=== PATIENT | male | born 1935 | race Caucasian/White ===

== ENCOUNTER 2020-11-21 05:59 | Day surgery (SDC) | payer MEDICARE, BC ==
[2020-11-20 10:51] LABS: BASOPHILS # (AUTO) 0.1 X10'3 (0-0.2); BASOPHILS % (AUTO) 1.3 % (0-1); EOSINOPHILS # (AUTO) 0.1 X10'3 (0-0.9); EOSINOPHILS % (AUTO) 1.5 % (0-6); HEMATOCRIT 42.1 % (42.0-52.0); HEMOGLOBIN 13.8 g/dl (14.0-17.9); LYMPHOCYTES # (AUTO) 1.1 X10'3 (1.1-4.8); LYMPHOCYTES % (AUTO) 17.4 % (21-51); MEAN CORPUSCULAR HEMOGLOBIN 30.2 PG (27.0-31.0); MEAN CORPUSCULAR HGB CONC 32.7 g/dL (33.0-36.5); MEAN CORPUSCULAR VOLUME 92.4 FL (78-98); MEAN PLATELET VOLUME 9.1 FL (7.4-10.4); MONOCYTES # (AUTO) 0.5 X10'3 (0-0.9); MONOCYTES % (AUTO) 7.6 % (2-12); NEUTROPHILS # (AUTO) 4.6 X10'3 (1.8-7.7); NEUTROPHILS % (AUTO) 72.2 % (42-75); PLATELET COUNT 182 X10'3 (140-440); RED BLOOD COUNT 4.56 X10'6 (4.70-6.10); RED CELL DISTRIBUTION WIDTH 15.3 % (11.5-14.5); WHITE BLOOD COUNT 6.4 X10'3 (4.5-11.0)
[2020-11-20 11:03] LABS: PARTIAL THROMBOPLASTIN TIME 25 SECONDS (22-32)
[2020-11-20 11:06] LABS: ALBUMIN 4.1 G/DL (3.4-5.0); ANION GAP 10 (8-16); BLOOD UREA NITROGEN 12 MG/DL (7-18); CALCIUM 8.9 MG/DL (8.5-10.1); CHLORIDE 105 MMOL/L (99-107); CREATININE 1.34 MG/DL (0.60-1.10); GLUCOSE 98 MG/DL (70-104); POTASSIUM 3.8 MMOL/L (3.5-5.1); SODIUM 142 MMOL/L (135-145); eGFR 51 ML/MIN
[2020-11-21] VITALS (11 sets, daily range): BP systolic 101–161; BP diastolic 50–90
[~2020-11-21] VITALS: Ht 177.8 cm; Wt 75.0 kg
[~2020-11-21 05:59] MED LIST: ALLO100T PO; AMLO-315 PO; ASPI-1264 PO; ASPI81TA52 PO; ATEN-168 PO; ATEN25TA8 PO; ATOR40TA PO; ATOR40TA72 PO; ENAL-79 PO; ENAL10TA78 PO; ENAL20TA75 PO; FURO-150 PO; OMEG1CAP2 PO; OMEP-50 PO; OMEP20CA15 PO; [UNRECOGNIZED DRUG - CODE] IS; tamsulosin capsule PO
[2020-11-21] MEDS ORDERED: normal saline 1000ml 1,000 ML IV SCH (06:15)
[2020-11-21] MEDS ORDERED: cefazolin/dext.iso 2gm/100ml 100 ML IV ONE (06:15)
[2020-11-21] MEDS ORDERED: ATEN-55 PO (06:54)
[2020-11-21] MEDS ORDERED: FLO0.4C PO (06:58)
[2020-11-21] MEDS ORDERED: APIX5TAB3 PO (07:00)
--- NOTE | 2020-11-21 07:09 | NUR ---
Last BM is per patient Addendum: 11/21/20 at 0712 by Joslyn LEONARD Amended: Links added.
--- NOTE | 2020-11-21 07:10 | NUR ---
Patient states sometimes it feels funny when he urinates and he has a history of bladder cancer. Patient states there is no blood in his urine at this time. No pain or frequency. Addendum: 11/21/20 at 0712 by Joslyn LEONARD Amended: Links added.
[2020-11-21] MEDS ORDERED: midazolam 1 mg/ML 2ml injection ONE ×2 (07:22→08:31)
[2020-11-21] MEDS ORDERED: ceFAZolin 1000mg inj ONE (07:22)
[2020-11-21] MEDS ORDERED: LIDOcaine 1% W/epiNEPHrine 1:100,000 20ml vial ONE (07:22)
[2020-11-21] MEDS ORDERED: fentaNYL/PF 50MCG/1 ML 2ML syringe ONE ×2 (07:22→08:32)
[2020-11-21] MEDS ORDERED: HYDROcodone/acetaminophen 5mg/325mg tablet PO PRN (09:55)
[2020-11-21] MEDS ORDERED: HYDROcodone/acetaminophen 10/325mg tab PO PRN (09:55)
[2020-11-21] MEDS ORDERED: vancomycin/NS 1 GM ADD-VANTAGE 250 ML IV ONE (11:00)
[2020-11-21] MEDS ORDERED: ondansetron/PF 4mg/2ml inj ONE (11:08)
[2020-11-21] MEDS ORDERED: ondansetron/PF 4mg/2ml inj IV PRN (11:10)
== END 2020-11-21 15:15 | disposition home or self-care (01) ==
LOC: SSTAY O 05:59 → MERGE 08:00 → SSTAY O 15:15
PROVIDERS: ATTEND Internal Medicine Cardiovascular Disease
DX: I49.5 Sick sinus syndrome (principal); E78.49 Other hyperlipidemia; J44.9 Chronic obstructive pulmonary disease, unspecified; I25.10 Atherosclerotic heart disease of native coronary artery without angina pectoris; I13.0 Hypertensive heart and chronic kidney disease with heart failure and stage 1 through stage 4 chronic kidney disease, or unspecified chronic kidney disease; N18.9 Chronic kidney disease, unspecified; I50.9 Heart failure, unspecified; I35.0 Nonrheumatic aortic (valve) stenosis; I48.19 Other persistent atrial fibrillation; E66.9 Obesity, unspecified; Z68.24 Body mass index [BMI] 24.0-24.9, adult; Z95.5 Presence of coronary angioplasty implant and graft; Z79.82 Long term (current) use of aspirin; Z79.899 Other long term (current) drug therapy; Z98.890 Other specified postprocedural states; Z87.891 Personal history of nicotine dependence
CPT/HCPCS: 33208; 36415; 71046; 80048; 85025; 85610; 85730; 93005; 99152; 99153; C1785; C1894; C1898; J0690; J2250; J2405; J3010; J3370; J7030; A4565; A4620; A6449

== ENCOUNTER 2021-07-12 09:38 | Emergency (ER) | payer MEDICARE, BC ==
[~2021-07-12] VITALS: Ht 177.8 cm; Wt 83.2 kg
[~2021-07-12 09:38] MED LIST changes: +APIX5TAB3 PO; -ASPI-1264 PO; -ATEN-168 PO; +ATEN-55 PO; -ATEN25TA8 PO; -ATOR40TA PO; -ENAL10TA78 PO; -ENAL20TA75 PO; +FLO0.4C PO; -FURO-150 PO; -OMEP20CA15 PO; -[UNRECOGNIZED DRUG - CODE] IS; -tamsulosin capsule PO
[2021-07-12 11:02] VITALS: BP 108/69
[2021-07-12 11:16] LABS: BASOPHILS # (AUTO) 0.1 X10'3 (0-0.2); BASOPHILS % (AUTO) 0.9 % (0-1); EOSINOPHILS # (AUTO) 0.1 X10'3 (0-0.9); EOSINOPHILS % (AUTO) 0.9 % (0-6); HEMATOCRIT 36.8 % (42.0-52.0); HEMOGLOBIN 12.5 g/dl (14.0-17.9); LYMPHOCYTES # (AUTO) 0.7 X10'3 (1.1-4.8); LYMPHOCYTES % (AUTO) 10.8 % (21-51); MEAN CORPUSCULAR HEMOGLOBIN 31.6 PG (27.0-31.0); MEAN CORPUSCULAR HGB CONC 33.9 g/dL (33.0-36.5); MEAN CORPUSCULAR VOLUME 93.1 FL (78-98); MEAN PLATELET VOLUME 9.9 FL (7.4-10.4); MONOCYTES # (AUTO) 0.6 X10'3 (0-0.9); MONOCYTES % (AUTO) 9.6 % (2-12); NEUTROPHILS # (AUTO) 4.9 X10'3 (1.8-7.7); NEUTROPHILS % (AUTO) 77.8 % (42-75); PLATELET COUNT 155 X10'3 (140-440); RED BLOOD COUNT 3.95 X10'6 (4.70-6.10); RED CELL DISTRIBUTION WIDTH 14.4 % (11.5-14.5); WHITE BLOOD COUNT 6.3 X10'3 (4.5-11.0)
[2021-07-12 11:32] LABS: ALANINE AMINOTRANSFERASE 24 U/L (12-78); ALBUMIN 3.9 G/DL (3.4-5.0); ALBUMIN/GLOBULIN RATIO 1.2 (1.1-1.5); ALKALINE PHOSPHATASE 161 IU/L (46-116); ANION GAP 10 (8-16); ASPARTATE AMINO TRANSFERASE 15 U/L (10-37); BILIRUBIN,TOTAL 0.8 MG/DL (0.1-1.0); BLOOD UREA NITROGEN 26 MG/DL (7-18); BUN/CREATININE RATIO 14.4 (5.4-32.0); CALCIUM 8.8 MG/DL (8.5-10.1); CHLORIDE 105 MMOL/L (99-107); CREATININE 1.81 MG/DL (0.60-1.10); GLUCOSE 97 MG/DL (70-104); POTASSIUM 4.4 MMOL/L (3.5-5.1); SODIUM 138 MMOL/L (135-145); TOTAL CARBON DIOXIDE 22.8 MMOL/L (24-32); TOTAL PROTEIN 7.1 G/DL (6.4-8.2); eGFR 36 ML/MIN
[2021-07-12] MEDS ORDERED: ROBCFL PO (12:36)
[2021-07-12] MEDS ORDERED: BENZ-38 PO (12:36)
== END 2021-07-12 12:45 | disposition home or self-care (01) ==
LOC: ER 09:38
DX: B34.9 Viral infection, unspecified (principal); Z20.822 Contact with and (suspected) exposure to COVID-19; J44.9 Chronic obstructive pulmonary disease, unspecified; I10 Essential (primary) hypertension; Z88.5 Allergy status to narcotic agent; Z79.899 Other long term (current) drug therapy
CPT/HCPCS: 36415; 71045; 80053; 85025; 87635; 99284; C9803

== ENCOUNTER 2021-09-22 11:19 | Emergency (ER) | payer MEDICARE, BC ==
[~2021-09-22] VITALS: Ht 177.8 cm; Wt 80.8 kg
[~2021-09-22 11:19] MED LIST changes: -OMEP-50 PO; +OMEP20CA16 PO
[2021-09-22 12:15] VITALS: BP 144/77
== END 2021-09-22 13:26 | disposition home or self-care (01) ==
LOC: ER 11:20
DX: S50.12XA Contusion of left forearm, initial encounter (principal); I10 Essential (primary) hypertension; J44.9 Chronic obstructive pulmonary disease, unspecified; G47.30 Sleep apnea, unspecified; Z88.8 Allergy status to other drugs, medicaments and biological substances; Z79.82 Long term (current) use of aspirin; Z79.899 Other long term (current) drug therapy; Z95.0 Presence of cardiac pacemaker; X50.3XXA Overexertion from repetitive movements, initial encounter; Y93.89 Activity, other specified; Y92.89 Other specified places as the place of occurrence of the external cause; Y99.8 Other external cause status
CPT/HCPCS: 93971; 99284

== ENCOUNTER 2021-10-13 09:48 | Emergency (ER) | payer MEDICARE, BC ==
[~2021-10-13] VITALS: Ht 177.8 cm; Wt 80.9 kg
[2021-10-13] MEDS ORDERED: SOTROVIMAB 500mg injection 500 MG in normal saline 100ml IV soln 100 ML IV ONE (11:05)
[2021-10-13 12:05] VITALS: BP 165/82
== END 2021-10-13 13:07 | disposition home or self-care (01) ==
LOC: ER 09:48
DX: U07.1 COVID-19 (principal); I10 Essential (primary) hypertension; J44.9 Chronic obstructive pulmonary disease, unspecified; G47.30 Sleep apnea, unspecified; Z87.01 Personal history of pneumonia (recurrent); Z88.8 Allergy status to other drugs, medicaments and biological substances; Z79.82 Long term (current) use of aspirin; Z79.899 Other long term (current) drug therapy; Z86.16 Personal history of COVID-19
CPT/HCPCS: 71045; 87635; 99284; C9803; J3490; M0247; Q0247

== ENCOUNTER 2021-10-15 10:38 | Emergency (ER) | payer MEDICARE, BC ==
[~2021-10-15] VITALS: Ht 177.8 cm; Wt 81.0 kg
[2021-10-15 10:40] VITALS: BP 160/87
[2021-10-15] MEDS ORDERED: ALBU18HF2 INH (12:21)
[2021-10-15] MEDS ORDERED: DEXA6TAB PO (12:21)
== END 2021-10-15 13:09 | disposition home or self-care (01) ==
LOC: ER 10:39
DX: U07.1 COVID-19 (principal); J44.1 Chronic obstructive pulmonary disease with (acute) exacerbation; I10 Essential (primary) hypertension; Z87.01 Personal history of pneumonia (recurrent); Z98.890 Other specified postprocedural states; Z88.5 Allergy status to narcotic agent; Z79.82 Long term (current) use of aspirin; Z79.899 Other long term (current) drug therapy
CPT/HCPCS: 71045; 99284

== ENCOUNTER 2022-12-11 12:03 | Emergency (ER) | payer MEDICARE, BC ==
[~2022-12-11] VITALS: Ht 177.8 cm; Wt 84.1 kg
[~2022-12-11 12:03] MED LIST changes: +ALBU18HF2 INH; +DEXA6TAB PO
[2022-12-11 12:20] LABS: BASOPHILS # (AUTO) 0.1 X10'3 (0-0.2); BASOPHILS % (AUTO) 1.2 % (0-1); EOSINOPHILS # (AUTO) 0.1 X10'3 (0-0.9); HEMATOCRIT 37.7 % (42.0-52.0); HEMOGLOBIN 12.7 g/dl (14.0-17.9); LYMPHOCYTES # (AUTO) 0.9 X10'3 (1.1-4.8); LYMPHOCYTES % (AUTO) 11.4 % (21-51); MEAN CORPUSCULAR HEMOGLOBIN 31.7 PG (27.0-31.0); MEAN CORPUSCULAR HGB CONC 33.7 g/dL (33.0-36.5); MEAN CORPUSCULAR VOLUME 94.3 FL (78-98); MEAN PLATELET VOLUME 9.6 FL (7.4-10.4); MONOCYTES # (AUTO) 0.5 X10'3 (0-0.9); NEUTROPHILS # (AUTO) 6.2 X10'3 (1.8-7.7); NEUTROPHILS % (AUTO) 79.4 % (42-75); PLATELET COUNT 169 X10'3 (140-440); RED BLOOD COUNT 3.99 X10'6 (4.70-6.10); RED CELL DISTRIBUTION WIDTH 15.5 % (11.5-14.5); WHITE BLOOD COUNT 7.8 X10'3 (4.5-11.0)
[2022-12-11 12:41] LABS: ALANINE AMINOTRANSFERASE 18 U/L (12-78); ALBUMIN 4.2 G/DL (3.4-5.0); ALBUMIN/GLOBULIN RATIO 1.4 (1.1-1.5); ALKALINE PHOSPHATASE 181 IU/L (46-116); ANION GAP 9 (8-16); ASPARTATE AMINO TRANSFERASE 13 U/L (10-37); BILIRUBIN,TOTAL 1.2 MG/DL (0.1-1.0); BLOOD UREA NITROGEN 15 MG/DL (7-18); BUN/CREATININE RATIO 10.7 (10.0-20.0); CALCIUM 8.9 MG/DL (8.5-10.1); CHLORIDE 106 MMOL/L (99-107); GLUCOSE 103 MG/DL (70-104); POTASSIUM 4.2 MMOL/L (3.5-5.1); SODIUM 141 MMOL/L (135-145); TOTAL CARBON DIOXIDE 26.4 MMOL/L (24-32); TOTAL PROTEIN 7.3 G/DL (6.4-8.2); eGFR 48 ML/MIN
--- NOTE | 2022-12-11 13:49 | NUR ---
PACE MAKER INTERROGATED. PT IN AFIB 95% PACED IN VENTRICALS
[2022-12-11] MEDS ORDERED: furosemide 10 MG/1 ML 10ml inj IV ONE (14:20)
[2022-12-11] MEDS ORDERED: furosemide 20MG tablet PO ONE (14:30)
[2022-12-11] MEDS ORDERED: POTA-205 PO (14:41)
[2022-12-11] MEDS ORDERED: FURO-150 PO (14:41)
[2022-12-11 14:54] VITALS: BP 146/114
[2022-12-11] MEDS ORDERED: ATEN-169 PO (15:08)
== END 2022-12-11 16:02 | disposition home or self-care (01) ==
LOC: ER 12:04
DX: I11.0 Hypertensive heart disease with heart failure (principal); I71.20 Thoracic aortic aneurysm, without rupture, unspecified; I50.9 Heart failure, unspecified; J44.9 Chronic obstructive pulmonary disease, unspecified; Z88.5 Allergy status to narcotic agent
CPT/HCPCS: 36415; 71045; 71250; 80053; 83880; 84484; 85025; 93005; 99285

== ENCOUNTER 2023-01-22 15:24 | Outpatient (CLI) | payer MEDICARE, BC ==
[~2023-01-22 15:24] MED LIST changes: -ATEN-55 PO; +FURO-150 PO; +POTA-205 PO
[2023-01-22 16:42] LABS: BASOPHILS # (AUTO) 0.1 X10'3 (0-0.2); BASOPHILS % (AUTO) 1.3 % (0-1); EOSINOPHILS # (AUTO) 0.1 X10'3 (0-0.9); HEMOGLOBIN 12.8 g/dl (14.0-17.9); LYMPHOCYTES # (AUTO) 1.4 X10'3 (1.1-4.8); LYMPHOCYTES % (AUTO) 20.5 % (21-51); MEAN CORPUSCULAR HEMOGLOBIN 30.8 PG (27.0-31.0); MEAN CORPUSCULAR HGB CONC 32.8 g/dL (33.0-36.5); MEAN CORPUSCULAR VOLUME 93.9 FL (78-98); MEAN PLATELET VOLUME 9.7 FL (7.4-10.4); MONOCYTES # (AUTO) 0.6 X10'3 (0-0.9); MONOCYTES % (AUTO) 9.2 % (2-12); NEUTROPHILS # (AUTO) 4.7 X10'3 (1.8-7.7); PLATELET COUNT 164 X10'3 (140-440); RED BLOOD COUNT 4.16 X10'6 (4.70-6.10); RED CELL DISTRIBUTION WIDTH 15.4 % (11.5-14.5)
== END 2023-01-22 23:59 | disposition home or self-care (01) ==
LOC: LAB 15:24
PROVIDERS: ATTEND Surgery Vascular Surgery
DX: I71.61 Supraceliac aneurysm of the thoracoabdominal aorta, without rupture (principal); Z79.899 Other long term (current) drug therapy
CPT/HCPCS: 36415; 84443; 85025

== ENCOUNTER 2023-02-01 10:42 | Outpatient (CLI) | payer MEDICARE, BC ==
[2023-02-01 11:45] LABS: BASOPHILS # (AUTO) 0.1 X10'3 (0-0.2); BASOPHILS % (AUTO) 1.4 % (0-1); EOSINOPHILS # (AUTO) 0.1 X10'3 (0-0.9); EOSINOPHILS % (AUTO) 1.6 % (0-6); HEMATOCRIT 39.1 % (42.0-52.0); HEMOGLOBIN 12.8 g/dl (14.0-17.9); LYMPHOCYTES # (AUTO) 1.2 X10'3 (1.1-4.8); LYMPHOCYTES % (AUTO) 19.1 % (21-51); MEAN CORPUSCULAR HEMOGLOBIN 30.7 PG (27.0-31.0); MEAN CORPUSCULAR HGB CONC 32.8 g/dL (33.0-36.5); MEAN CORPUSCULAR VOLUME 93.5 FL (78-98); MEAN PLATELET VOLUME 9.8 FL (7.4-10.4); MONOCYTES # (AUTO) 0.5 X10'3 (0-0.9); MONOCYTES % (AUTO) 8.4 % (2-12); NEUTROPHILS # (AUTO) 4.5 X10'3 (1.8-7.7); NEUTROPHILS % (AUTO) 69.5 % (42-75); PLATELET COUNT 176 X10'3 (140-440); RED BLOOD COUNT 4.18 X10'6 (4.70-6.10); RED CELL DISTRIBUTION WIDTH 15.3 % (11.5-14.5); WHITE BLOOD COUNT 6.4 X10'3 (4.5-11.0)
[2023-02-01 11:50] LABS: ALBUMIN 4.2 G/DL (3.4-5.0); ANION GAP 13 (8-16); BLOOD UREA NITROGEN 25 MG/DL (7-18); BUN/CREATININE RATIO 13.3 (10.0-20.0); CALCIUM 8.4 MG/DL (8.5-10.1); CHLORIDE 105 MMOL/L (99-107); CREATININE 1.88 MG/DL (0.60-1.10); GLUCOSE 80 MG/DL (70-104); SODIUM 145 MMOL/L (135-145); TOTAL CARBON DIOXIDE 27.4 MMOL/L (24-32); eGFR 34 ML/MIN
== END 2023-02-01 23:59 | disposition home or self-care (01) ==
LOC: LAB 10:42
PROVIDERS: ATTEND Surgery Vascular Surgery
DX: I71.61 Supraceliac aneurysm of the thoracoabdominal aorta, without rupture (principal)
CPT/HCPCS: 36415; 80048; 85025

== ENCOUNTER 2023-02-05 07:51 | Day surgery (SDC) | payer MEDICARE, BC ==
[~2023-02-05] VITALS: Ht 177.8 cm; Wt 77.4 kg
[2023-02-05] MEDS ORDERED: sodium bicarbonate 1meq/ml inj 150 ML in dextrose 5%-water 1,000 ML IV SCH (08:30)
[2023-02-05 10:00] VITALS: BP 114/58
[2023-02-05] MEDS ORDERED: iohexol 350MG/ML 100ml bottle IV ONE (10:49)
[2023-02-05] MEDS ORDERED: POTA-205 PO (11:01)
[2023-02-05] MEDS ORDERED: FURO20TA4 PO (11:01)
[2023-02-05] MEDS ORDERED: ATEN25TA PO (11:01)
[2023-02-05 12:51] VITALS: BP 108/49
== END 2023-02-05 14:50 | disposition home or self-care (01) ==
LOC: SSTAY O 07:51
PROVIDERS: ATTEND Surgery Vascular Surgery
DX: I71.61 Supraceliac aneurysm of the thoracoabdominal aorta, without rupture (principal); I71.20 Thoracic aortic aneurysm, without rupture, unspecified; I71.40 Abdominal aortic aneurysm, without rupture, unspecified; N62 Hypertrophy of breast; K44.9 Diaphragmatic hernia without obstruction or gangrene; K29.70 Gastritis, unspecified, without bleeding; K31.89 Other diseases of stomach and duodenum; K57.30 Diverticulosis of large intestine without perforation or abscess without bleeding; K56.699 Other intestinal obstruction unspecified as to partial versus complete obstruction; K40.20 Bilateral inguinal hernia, without obstruction or gangrene, not specified as recurrent; N28.1 Cyst of kidney, acquired
CPT/HCPCS: 71275; 74174; J3490; J7070; Q9967

== ENCOUNTER 2024-06-19 08:57 | Emergency (ER) | payer MEDICARE, BC ==
[~2024-06-19] VITALS: Ht 177.8 cm; Wt 79.1 kg
[~2024-06-19 08:57] MED LIST changes: -ALBU18HF2 INH; +ATEN25TA PO; -DEXA6TAB PO; -FURO-150 PO; +FURO20TA4 PO; -OMEG1CAP2 PO; +POLY119P2 PO
[2024-06-19 09:14] LABS: BASOPHILS # (AUTO) 0.1 X10'3 (0-0.2); BASOPHILS % (AUTO) 0.9 % (0-1); EOSINOPHILS # (AUTO) 0.1 X10'3 (0-0.9); EOSINOPHILS % (AUTO) 0.6 % (0-6); HEMATOCRIT 38.6 % (42.0-52.0); HEMOGLOBIN 12.8 g/dl (14.0-17.9); LYMPHOCYTES # (AUTO) 0.7 X10'3 (1.1-4.8); LYMPHOCYTES % (AUTO) 8.8 % (21-51); MEAN CORPUSCULAR HEMOGLOBIN 32.2 PG (27.0-31.0); MEAN CORPUSCULAR HGB CONC 33.1 g/dL (33.0-36.5); MEAN CORPUSCULAR VOLUME 97.4 FL (78-98); MEAN PLATELET VOLUME 8.5 FL (7.4-10.4); MONOCYTES # (AUTO) 0.5 X10'3 (0-0.9); MONOCYTES % (AUTO) 5.5 % (2-12); NEUTROPHILS # (AUTO) 7.1 X10'3 (1.8-7.7); NEUTROPHILS % (AUTO) 84.2 % (42-75); PLATELET COUNT 178 X10'3 (140-440); RED BLOOD COUNT 3.97 X10'6 (4.70-6.10); RED CELL DISTRIBUTION WIDTH 15.5 % (11.5-14.5); WHITE BLOOD COUNT 8.4 X10'3 (4.5-11.0)
[2024-06-19 09:36] LABS: ALANINE AMINOTRANSFERASE 17 U/L (12-78); ALBUMIN/GLOBULIN RATIO 1.3 (1.1-1.5); ALKALINE PHOSPHATASE 139 IU/L (46-116); ANION GAP 8 (8-16); ASPARTATE AMINO TRANSFERASE 16 U/L (10-37); BILIRUBIN,TOTAL 0.8 MG/DL (0.1-1.0); CHLORIDE 106 MMOL/L (99-107); CREATININE 1.62 MG/DL (0.60-1.10); GLUCOSE 108 MG/DL (70-104); POTASSIUM 4.6 MMOL/L (3.5-5.1); SODIUM 141 MMOL/L (135-145); TOTAL CARBON DIOXIDE 27.2 MMOL/L (24-32); TOTAL PROTEIN 7.2 G/DL (6.4-8.2); eCRCL 33 ML/MIN; eGFR 40 ML/MIN
[2024-06-19 09:44] LABS: PRO BRAIN NATRIURETIC PEPTIDE 2952 PG/ML (0-450)
[2024-06-19 09:46] LABS: BLOOD UREA NITROGEN 22 MG/DL (7-18); BUN/CREATININE RATIO 13.6 (10.0-20.0)
[2024-06-19 10:13] VITALS: TEMP 98; O2SAT 96
[2024-06-19 10:32] VITALS: BP 118/53; PULSE 69
[2024-06-19 10:37] VITALS: RESP 16
== END 2024-06-19 11:20 | disposition home or self-care (01) ==
LOC: ER 08:57
DX: I95.1 Orthostatic hypotension (principal); I48.91 Unspecified atrial fibrillation; I10 Essential (primary) hypertension; J44.9 Chronic obstructive pulmonary disease, unspecified; G47.30 Sleep apnea, unspecified; Z95.0 Presence of cardiac pacemaker; Z88.5 Allergy status to narcotic agent; Z79.82 Long term (current) use of aspirin; Z79.899 Other long term (current) drug therapy
CPT/HCPCS: 36415; 71045; 80053; 83880; 84484; 85025; 93005; 99285

== ENCOUNTER 2025-01-02 08:01 | Emergency (ER) | payer MEDICARE, BC ==
[~2025-01-02] VITALS: Ht 177.8 cm; Wt 74.1 kg
[~2025-01-02 08:01] MED LIST changes: +CLOP75TA34 PO; +COMP1EAC86 INH; -FLO0.4C PO; +IPRA3AMP9 IH; +MECL-231 PO; +MIDO2.5T PO; +PANT40SU2 PO
[2025-01-02 08:05] VITALS: TEMP 97.8
--- NOTE | 2025-01-02 08:16 | ELECTROCARDIOGRAPH REPORT ---
[facility] Test Date: 2025-01-02 Test Time: 08:14:00 Pat Name: VANESA COTTRELL Department: [facility]- Patient ID: [facility]-[id number] Room: Gender: M Bus Girl: : 1935 Requested By: TRISTA GABRIEL Order Number: [id number] Reading MD: Measurements Intervals [place] Rate: 64 P: 202 MI: 188 QRS: -75 QRSD: 163 T: 96 QT: 460 QTc: 475 Interpretive Statements Ventricular-paced rhythm No further analysis attempted due to paced rhythm Baseline wander in lead(s) I,III,aVR,aVL,aVF Please click the below link to view image of tracing.
[2025-01-02 08:42] LABS: BASOPHILS # (AUTO) 0.1 X10'3 (0-0.2); EOSINOPHILS # (AUTO) 0.1 X10'3 (0-0.9); EOSINOPHILS % (AUTO) 0.9 % (0-6); HEMATOCRIT 36.9 % (42.0-52.0); HEMOGLOBIN 12.4 g/dl (14.0-17.9); LYMPHOCYTES # (AUTO) 0.7 X10'3 (1.1-4.8); LYMPHOCYTES % (AUTO) 9.6 % (21-51); MEAN CORPUSCULAR HEMOGLOBIN 30.8 PG (27.0-31.0); MEAN CORPUSCULAR HGB CONC 33.6 g/dL (33.0-36.5); MEAN CORPUSCULAR VOLUME 91.6 FL (78-98); MONOCYTES # (AUTO) 0.8 X10'3 (0-0.9); MONOCYTES % (AUTO) 10.8 % (2-12); NEUTROPHILS % (AUTO) 77.7 % (42-75); PLATELET COUNT 159 X10'3 (140-440); RED BLOOD COUNT 4.03 X10'6 (4.70-6.10); RED CELL DISTRIBUTION WIDTH 15.2 % (11.5-14.5); WHITE BLOOD COUNT 7.8 X10'3 (4.5-11.0)
--- NOTE | 2025-01-02 08:46 | RADIOLOGY REPORT ---
CHEST RADIOGRAPH Indication: CP Technique: Single frontal view of the chest was obtained COMPARISON: DI CHEST,SINGLE VIEW on DOS: 06/24/24, DI CHEST,SINGLE VIEW on DOS: 06/21/24, DI CHEST,SI NGLE VIEW on DOS: 06/19/24, CHEST,SINGLE VIEW on DOS: 07/12/21 FINDINGS: Lines and Tubes: Left chest wall pacemaker. Lungs: Clear Pleura: No effusion. No pneumothorax. Cardiomediastinal contours: Thoracic aorta stent in-situ. Bones: Unremarkable IMPRESSION: No acute disease.
[2025-01-02 08:53] LABS: ALANINE AMINOTRANSFERASE 18 U/L (12-78); ALBUMIN 3.8 G/DL (3.4-5.0); ALBUMIN/GLOBULIN RATIO 1.2 (1.1-1.5); ALKALINE PHOSPHATASE 133 IU/L (46-116); ANION GAP 11 (8-16); ASPARTATE AMINO TRANSFERASE 15 U/L (10-37); BILIRUBIN,TOTAL 1.1 MG/DL (0.1-1.0); BLOOD UREA NITROGEN 20 MG/DL (7-18); BUN/CREATININE RATIO 13.5 (10.0-20.0); CHLORIDE 104 MMOL/L (99-107); CREATININE 1.48 MG/DL (0.60-1.10); GLUCOSE 144 MG/DL (70-104); SODIUM 137 MMOL/L (135-145); TOTAL CARBON DIOXIDE 21.9 MMOL/L (24-32); TOTAL PROTEIN 6.9 G/DL (6.4-8.2); eCRCL 35 ML/MIN; eGFR 45 ML/MIN
[2025-01-02 09:00] LABS: PRO BRAIN NATRIURETIC PEPTIDE 8128 PG/ML (0-450)
--- NOTE | 2025-01-02 09:10 | Physician Documentation ---
History of Present Illness ~ Chief Complaint: Cold, cough & congestion Stated Complaint: NAUSEA/COUGH/NOT EATING Time Seen by MD: 08:43 Primary Medical Doctor: VIKRAM ISAACS 89-year-old male presenting with cough and sinus congestion for the past three days. States that his nose feels very congested and plugged up and has been draining clear to sometimes yellow mucus. He also states that he has developed a cough during this one time and has been coughing up some clear phlegm. He otherwise denies any fever, chills, shortness of breath, chest pain or any other associated symptoms. His states that she also has had a slight runny nose during this time. Medication Reconciliation Allergies: Coded Allergies: codeine (Verified Adverse Reaction, Unknown, n/v, 07/12/21) Scheduled Allopurinol* (Zyloprim*), 1 TABLET PO DAILY, (Reported) Amlodipine Besylate (Amlodipine Besylate), 1 TAB PO DAILY, (Reported) Apixaban (Eliquis), 1 TAB PO Q12H, (Reported) Aspirin (Aspirin EC), 1 TAB PO DAILY, (Reported) Atenolol (Atenolol), 1 TAB PO BID, (Reported) Atorvastatin Calcium (Atorvastatin Calcium), 1 TAB PO DAILY, (Reported) Clopidogrel Bisulfate (Clopidogrel), 75 MG PO DAILY Enalapril Maleate (Enalapril Maleate), 1 TAB PO DAILY, (Reported) Furosemide (Furosemide), 1 TAB PO DAILY, (Reported) Ipratropium/Albuterol Sulfate (IPRAT-ALBUT 0.5-3(2.5) MG/3 ML nebule), 3 ML IH QIDWA Meclizine Hcl (Meclizine Hcl), 12.5 MG PO Q8H Midodrine Hcl* (Proamatine*), 1 TAB PO Q8H Omeprazole (Omeprazole), 1 CAP PO DAILY, (Reported) Pantoprazole Sodium (Protonix), 40 MG PO DAILY Polyethylene Glycol 3350 (Miralax), 17 GM PO DAILY Potassium Chloride (Potassium Chloride), 1 TAB PO DAILY, (Reported) Durable Medical Equipment Compressor, For Nebulizer (Devilbiss Pulmomate), INH INH QIDWA, (DME) Past Medical History Past Medical History: Atrial Fibrillation, Hypertension, Syncope, COPD, Pneumonia, Sleep Apnea Past Surgical History: heart valve surgery Other Past Surgical History: AAA surgery Patient History: FH: pancreatic cancer Alcohol Use: None Drug Use: none Lives with: Spouse Lives In: Home Occupation: retired Review of Systems All Other Systems at this time: Reviewed and Negative Physical Exam Vital Signs: Temperature: 97.8, Heart Rate: 62, Respiratory Rate: 27, BP: 156/71, Pulse Oximetry: 96, Weight: 74.090 Oxygen Flow Rate: 0 Physical Exam I have reviewed the triage vitals. CONST: Well developed and well nourished. In no acute distress HENT: Head Atraumatic EYES: Pupils are equal, round and reactive to light. Normal conjunctiva NECK: Normal range of motion. Supple. CARDIO: Normal rate and regular rhythm. No murmurs, rubs, or gallops. S1, S2. PULM/CHEST: No respiratory distress. Lungs clear to auscultation. No wheeze ABD: Soft and nontender. Nondistended. Bowel sounds normal. No guarding. : Exam deferred MSK: No edema. No deformity. NEURO: Alert and oriented to person, place and time. Moving all extremities SKIN: Warm and dry. PSYCH: Normal mood and affect. Good eye contact. Progress Results/Orders Results/Orders Orders - TRISTA GABRIEL MD Chest,Single View (01/02/25 08:11) Monitor (01/02/25 08:11) Saline Lock (01/02/25 08:11) Oxygen (01/02/25 08:11) Completed Orders - TRISTA GABRIEL MD Chest,Single View (01/02/25 08:11) Cbc/Diff (01/02/25 08:11) PBNP (01/02/25 08:11) Electrocardiogram (01/02/25 08:11) CMP (01/02/25 08:11) Hs Troponin I W Calculations (01/02/25 08:11) Vital Signs 01/02/25 01/02/25 01/02/25 01/02/25 08:05 08:44 08:44 09:26 Temp 97.8 Pulse 65 62 67 Resp 19 17 27 22 B/P (MAP) 154/71 156/71 (99) 119/56 (77) Pulse Ox 97 96 96 O2 Flow Rate 0 01/02/25 09:27 Pulse 67 Resp 22 B/P (MAP) 119/56 Pulse Ox 96 Laboratory Tests Test 01/02/25 08:25 White Blood Count 7.8 Red Blood Count 4.03 L Hemoglobin 12.4 L Hematocrit 36.9 L Mean Corpuscular Volume 91.6 Mean Corpuscular Hemoglobin 30.8 Mean Corpuscular Hemoglobin Concent 33.6 Red Cell Distribution Width 15.2 H Platelet Count 159 Mean Platelet Volume 9.0 Neutrophils (%) (Auto) 77.7 H Lymphocytes (%) (Auto) 9.6 L Monocytes (%) (Auto) 10.8 Eosinophils (%) (Auto) 0.9 Basophils (%) (Auto) 1.0 Neutrophils # (Auto) 6.0 Lymphocytes # (Auto) 0.7 L Monocytes # (Auto) 0.8 Eosinophils # (Auto) 0.1 Basophils # (Auto) 0.1 CBC Comment Sodium Level 137 Potassium Level 4.0 Chloride Level 104 Carbon Dioxide Level 21.9 L Anion Gap 11 Blood Urea Nitrogen 20 H Creatinine 1.48 H Estimated GFR/1.73 m2 45 BUN/Creatinine Ratio 13.5 Glucose Level 144 H Calcium Level 9.0 Total Bilirubin 1.1 H Aspartate Amino Transf (AST/SGOT) 15 Alanine Aminotransferase (ALT/SGPT) 18 Alkaline Phosphatase 133 H Troponin I High Sensitivity 30 Pro-B-Type Natriuretic Peptide 8128 H Total Protein 6.9 Albumin 3.8 Globulin 3.1 Albumin/Globulin Ratio 1.2 Chemistry Comments EKG/XRAY/CT/US/VASC/MRI EKG : Additional Comment EKG as interpreted by ED MD indicates a Ventricular paced rhythm. No ischemia, normal axis, rate of 64 beats per minute Chest X-Ray : Additional Comments CHEST RADIOGRAPH Indication: CP Technique: Single frontal view of the chest was obtained COMPARISON: DI CHEST,SINGLE VIEW on DOS: 06/24/24, DI CHEST,SINGLE VIEW on DOS: 06/21/24, DI CHEST,SINGLE VIEW on DOS: 06/19/24, CHEST,SINGLE VIEW on DOS: 07/12/21 FINDINGS: Lines and Tubes: Left chest wall pacemaker. Lungs: Clear Pleura: No effusion. No pneumothorax. Cardiomediastinal contours: Thoracic aorta stent in-situ. Bones: Unremarkable IMPRESSION: No acute disease. Medical Decision Making Differential Diagnosis 89-year-old male presenting with sinus congestion and cough likely secondary to acute sinusitis. Appears that the sinusitis is also causing some postnasal drip and thus resulting in a cough. The patient's chest x-ray is unremarkable. He does have a pacemaker/defibrillator as well as some mild cardiomegaly but there are no signs of any acute disease such as pneumonia. His lab workup is also grossly unremarkable. He has known chronic kidney disease in his BUN creatinine however is at baseline. There is no elevation in his WBC count. The patient's vital signs are normal and he is satting at 98% on room air. On Physical exam he also has no wheezing or any other abnormalities and is not in any type of respiratory distress. Given the findings I believe that we can treat this as an outpatient. I will prescribe him Augmentin for his sinusitis given that he is high risk and could potentially develop pneumonia. He will be prescribed Augmentin 875 mg twice a day for seven days. Additionally I advised this patient to treat his symptoms symptomatically with [id number] medications such as Mucinex. Advised to monitor his symptoms for improvement and resolution. Follow up with PCP in the next 2-5 days and return to the ED with any acutely worsening symptoms. Departure Disposition: 01 HOME / SELF CARE / HOMELESS Impression: Primary Impression: Sinusitis Additional Impression: Cough Condition: Stable Discharge Instructions: Sinus Infection, Adult Additional Instructions: Take her medications as prescribed. Take Mucinex [id number] as needed as well. Monitor for improvement and resolution. Follow up with your primary care physician in the next 2-5 days. Return to the ED with any acutely worsening symptoms. Referrals: NO PRIMARY CARE PROVIDER (PCP) Signature Scribe Signature: 1 Attestation: 1 TRISTA GABRIEL MD January 02, 2025 09:09
[2025-01-02 09:27] VITALS: BP 119/56; PULSE 67; RESP 22; O2SAT 96
== END 2025-01-02 09:28 | disposition home or self-care (01) ==
LOC: ER 08:01
DX: J32.9 Chronic sinusitis, unspecified (principal); J44.9 Chronic obstructive pulmonary disease, unspecified; G47.30 Sleep apnea, unspecified; I10 Essential (primary) hypertension; I48.91 Unspecified atrial fibrillation; Z88.5 Allergy status to narcotic agent; Z79.82 Long term (current) use of aspirin
CPT/HCPCS: 36415; 71045; 80053; 83880; 84484; 85025; 93005; 99285

== ENCOUNTER 2025-01-26 18:35 | Emergency (ER) | payer MEDICARE, BC ==
[~2025-01-26] VITALS: Ht 177.8 cm; Wt 79.1 kg
[2025-01-26 18:46] VITALS: TEMP 98.1
--- NOTE | 2025-01-26 19:03 | Physician Documentation ---
History of Present Illness ~ Chief Complaint: Dizziness Stated Complaint: DIZZY Time Seen by MD: 19:05 Primary Medical Doctor: VIKRAM ISAACS Patient is seen today with complaints of dizziness for the last few days. Patient states he has experienced similar symptoms previously and was treated using some movements of his eyes and head that helped him resolve symptoms. Patient denies taking any medication this time for his sensation of vertigo/dizziness. Patient states he feels like the room is spinning. He denies any syncopal episodes and denies any chest pain or shortness of breath or abdominal pain or diarrhea. Patient does admit to some nausea during these episodes. He states when he sits down the symptoms resolve but when he is up and about and moving his head around he feels like the room starts spinning. He has no other concern or complaint at this time. Medication Reconciliation Allergies: Coded Allergies: codeine (Verified Allergy, Unknown, n/v, 01/26/25) Scheduled Allopurinol* (Zyloprim*), 1 TABLET PO DAILY, (Reported) Amlodipine Besylate (Amlodipine Besylate), 1 TAB PO DAILY, (Reported) Apixaban (Eliquis), 1 TAB PO Q12H, (Reported) Aspirin (Aspirin EC), 1 TAB PO DAILY, (Reported) Atenolol (Atenolol), 1 TAB PO BID, (Reported) Atorvastatin Calcium (Atorvastatin Calcium), 1 TAB PO DAILY, (Reported) Clopidogrel Bisulfate (Clopidogrel), 75 MG PO DAILY Enalapril Maleate (Enalapril Maleate), 1 TAB PO DAILY, (Reported) Furosemide (Furosemide), 1 TAB PO DAILY, (Reported) Ipratropium/Albuterol Sulfate (IPRAT-ALBUT 0.5-3(2.5) MG/3 ML nebule), 3 ML IH QIDWA Meclizine Hcl (Meclizine Hcl), 12.5 MG PO Q8H Midodrine Hcl* (Proamatine*), 1 TAB PO Q8H Omeprazole (Omeprazole), 1 CAP PO DAILY, (Reported) Pantoprazole Sodium (Protonix), 40 MG PO DAILY Polyethylene Glycol 3350 (Miralax), 17 GM PO DAILY Potassium Chloride (Potassium Chloride), 1 TAB PO DAILY, (Reported) Durable Medical Equipment Compressor, For Nebulizer (Devilbiss Pulmomate), INH INH QIDWA, (DME) Past Medical History Past Medical History: Atrial Fibrillation, Hypertension, Syncope, COPD, Pneumon ia, Sleep Apnea Past Surgical History: heart valve surgery Other Past Surgical History: AAA surgery Patient History: FH: pancreatic cancer Alcohol Use: None Drug Use: none Lives with: Spouse Lives In: Home Occupation: retired Review of Systems Constitutional: Denies: chills, fever, weakness Eyes: Denies: pain, blurred vision ENT: Denies: ear pain, nose pain, throat pain, mouth pain Respiratory: Denies: cough, shortness of breath Cardiovascular: Denies: chest pain, palpitations Gastrointestinal: Denies: abdominal pain, nausea, vomiting Genitourinary: Denies: burning, dysuria Male Genitalia: Denies: penile discharge, testicular pain Neurological: Denies: headache, dizziness Musculoskeletal: Denies: pain, swelling Integumentary: Denies: rash, lesions Allergic/Immunologic: Denies: hives, itching Hematologic/Lymphatic: Denies: no symptoms reported Psychiatric: Denies: depression, anxiety Physical Exam Vital Signs: Temperature: 98.1, Source: Oral, Heart Rate: 70, Respiratory Rate: 18, BP: 141/81, Pulse Oximetry: 97, Weight: 79.090 Physical Exam General: Awake and Alert, no acute distress. HEENT: Conjunctiva pink, Sclera clear, Mucus Membranes moist. Neck: Supple without masses and tenderness. Resp: Unlabored. Lungs clear to auscultation bilaterally. Heart: Regular Rate and rhythm, normal S1 and S2 without murmur, rub or gallop. Extremities: No cyanosis,clubbing or edema. Skin: Warm and Dry. Procedures Additional Procedures Procedure Note Patient did have Rodney's maneuver performed today and patient did report nearly immediate improvement of symptoms of vertigo. Progress Results/Orders Results/Orders Completed Orders - SEGUN MAY Meclizine Tablets (Antivert Tablet) (01/26/25 23:27) Medications Received in ER Medications (Trade) Dose Ordered Sig/Norm Route PRN Reason Start Time Stop Time Status Last Admin Dose Admin (Antivert tablet) 25 mg ONCE STAT PO 01/26/25 23:27 01/26/25 23:29 DC 01/26/25 23:37 25 MG Vital Signs 01/26/25 01/26/25 01/26/25 18:46 20:59 23:05 Temp 98.1 Pulse 70 66 Resp 18 17 B/P (MAP) 141/81 157/74 (101) Pulse Ox 97 98 O2 Flow Rate 0 Medical Decision Making Findings Patient is seen today with complaints of dizziness for the last few days. Patient states he has experienced similar symptoms previously and was treated using some movements of his eyes and head that helped him resolve symptoms. Patient denies taking any medication this time for his sensation of vertigo/d izziness. Patient states he feels like the room is spinning. He denies any syncopal episodes and denies any chest pain or shortness of breath or abdominal pain or diarrhea. Patient does admit to some nausea during these episodes. He states when he sits down the symptoms resolve but when he is up and about and moving his head around he feels like the room starts spinning. He has no other concern or complaint at this time. After Rodney's maneuver in the ED today guided by myself, the patient states he is feeling better. Patient was also given meclizine 25 mg by mouth. Patient will follow up with primary care in 2-5 days if no better as needed sooner for referral to ENT specialist. Patient will return to ED with any worsening, concerning or changing symptoms. Departure Disposition: HOME / SELF CARE / HOMELESS Impression: Primary Impression: Vertigo Condition: Improved Discharge Instructions: Vertigo Additional Instructions: After Rodney's maneuver in the ED today guided by myself, the patient states he is feeling better. Patient was also given meclizine 25 mg by mouth. Patient will follow up with primary care in 2-5 days if no better as needed sooner for referral to ENT specialist. Patient will return to ED with any worsening, concerning or changing symptoms. Referrals: NO PRIMARY CARE PROVIDER (PCP) Signature Scribe Signature: No scribe Attestation: No scribe SEGUN MAY PAC Jan 26, 2025 19:03
--- NOTE | 2025-01-26 19:06 | ELECTROCARDIOGRAPH REPORT ---
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
[2025-01-26] MEDS: meclizine 12.5mg tablet PO STA (23:37)
[2025-01-27 00:12] VITALS: BP 161/73; PULSE 70; RESP 15; O2SAT 95
== END 2025-01-27 00:27 | disposition home or self-care (01) ==
LOC: ER 18:35
DX: R42 Dizziness and giddiness (principal); R11.0 Nausea; G47.30 Sleep apnea, unspecified; I10 Essential (primary) hypertension; I48.91 Unspecified atrial fibrillation; J44.9 Chronic obstructive pulmonary disease, unspecified; Z88.5 Allergy status to narcotic agent; Z79.82 Long term (current) use of aspirin
CPT/HCPCS: 93005; 99283; J8597

== ENCOUNTER 2025-03-12 13:25 | Emergency (ER) | payer MEDICARE, BC ==
[~2025-03-12] VITALS: Ht 177.8 cm; Wt 75.7 kg
--- NOTE | 2025-03-12 14:02 | RADIOLOGY REPORT ---
EXAM: CT CT HEAD INDICATION: fall on thinners TECHNIQUE: CT of the head without intravenous contrast. Radiation Dose : 1. Head: CT Dose: CTDI volume is 53 mGy. Dose-length product is 950 mGy*cm The dose indicators for CT are the volume Computed Tomography (CT) Dose Index (CTDIvol) and the Dose Length Product (DLP), and are measured in units of mGy and mGy-cm, respectively. These indicators are not patient dose, but values generated from the CT scanner acquisition factors. The report includes radiation exposure data for exposures received during this examination. COMPARISON: MR MRI HEAD on DOS: 06/22/24, MR MRA HEAD on DOS: 06/22/24, CT CT HEAD on DOS: 06/21/24 FINDINGS: There is no evidence of acute intracranial hemorrhage, extra-axial collection, mass effect, midline s hift, herniation or hydrocephalus. The ventricles, sulci and cisterns are age appropriate. The rob-white differentiation is intact. Patchy periventricular and subcortical white matter hypoattenuation is nonspecific but may be related to small vessel ischemic disease. Right temporal lobe encephalomalacia. The visualized paranasal sinuses and mastoid air cells are clear. Moderate to severe left periorbital and pre maxillary soft-tissue swelling. IMPRESSION: No acute intracranial abnormality. Radiation optimization: All CT scans at this facility use at least one of these dose optimization socorro hniques: automated exposure control mA and/or kV adjustment per patient size (includes targeted exam s where dose is matched to clinical indication) or iterative reconstruction.
--- NOTE | 2025-03-12 14:21 | RADIOLOGY REPORT ---
Procedure: CT [facility] Study Date and Requested Time: 03/12/2025 01:43 PM History: fall on thinners Comparison: CT CT HEAD on DOS: 03/12/25, MR MRI HEAD on DOS: 06/22/24, MR MRA HEAD on DOS: 06/22/24 Dose: CTDI: 54.49 mGy DLP: 1055.65 mGycm Technique: Multiplanar images obtained through the face without intravenous contrast. Findings: Large hematoma with a soft tissue edema over the left cheek and left zygomatic region ascending into the left lateral orbital region with no associated fractures. There is few ssociated foci of air. No evidence of acute traumatic fractures. Bilateral lens replacement with dislocation of the right lens of unknown chronicity. Abnormal configu ration of the right globe. Moderate degenerative changes of the visualized cervical spine. Mild mucoperiosteal thickening of the right maxillary sinus. Otherwise, the paranasal sinuses mastoi ds are clear. Roots of the mandibular central and lateral incisors are noted. Otherwise, the patient is edentulous . Heavy atherosclerotic calcification of the carotid siphons. Surgical clips with Streak artifact are noted over The but Upper neck region which may be be associat ed with lymph node Dissection. Right palatine tonsillith is noted. The parotid and submandibular glan ds unremarkable. Impression: Large hematoma with soft tissue edema inferior Foci of air over the left cheek and left zygomatic reg ion with no associated fractures. Bilateral lens replacement with dislocation of the right lens and abnormal configuration of the right globe of unknown chronicity. No significant right-sided periorbital edema.
--- NOTE | 2025-03-12 14:24 | RADIOLOGY REPORT ---
Indication: fall on thinners Technique: CT axial images of the cervical spine are obtained without contrast. Coronal and sagittal reformats were obtained. Radiation Dose Information: CTDI volume is 22.4 mGy. Dose-length product is 596 mGy*cm Comparison: CT CT HEAD on DOS: 03/12/25, MR MRI HEAD on DOS: 06/22/24, MR MRA HEAD on DOS: 06/22/24, CT CT HEAD on DOS: 06/21/24 FINDINGS: The cervical vertebral body heights are maintained. Straightening of normal cervical spine curvature . There is moderate to advanced disc space narrowing. No prevertebral edema. Facet articulations demo nstrate moderate facet hypertrophic changes . The atlantooccipital, atlantoaxial articulations are in tact. Pulmonary emphysematous changes. 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 Wrist postsurgical changes right neck. 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
--- NOTE | 2025-03-12 14:59 | Physician Documentation ---
History of Present Illness ~ Chief Complaint: Trauma Level 3 Stated Complaint: FALL/FACIAL INJURY Time Seen by MD: 14:42 Primary Medical Doctor: VIKRAM Mode of Arrival: Ambulatory HPI 89-year-old male presenting after a mechanical fall. Patient was putting on his slacks when he accidentally slipped off his bed, caught the wire to his laptop and fell to the ground. States that the laptop then slid often hit him in the face. He sustained a big bruise over the left eye as well as a small cut which has been bleeding. The patient did not lose consciousness. He denies any dizziness or near syncopal symptoms. He is on several blood thinners including aspirin, and Plavix. Denies any other symptoms or injuries. Medication Reconciliation Allergies: Coded Allergies: codeine (Verified Allergy, Unknown, n/v, 03/12/25) Scheduled Allopurinol* (Zyloprim*), 1 TABLET PO DAILY, (Reported) Amlodipine Besylate (Amlodipine Besylate), 1 TAB PO DAILY, (Reported) Apixaban (Eliquis), 1 TAB PO Q12H, (Reported) Aspirin (Aspirin EC), 1 TAB PO DAILY, (Reported) Atenolol (Atenolol), 1 TAB PO BID, (Reported) Atorvastatin Calcium (Atorvastatin Calcium), 1 TAB PO DAILY, (Reported) Clopidogrel Bisulfate (Clopidogrel), 75 MG PO DAILY Enalapril Maleate (Enalapril Maleate), 1 TAB PO DAILY, (Reported) Furosemide (Furosemide), 1 TAB PO DAILY, (Reported) Ipratropium/Albuterol Sulfate (IPRAT-ALBUT 0.5-3(2.5) MG/3 ML nebule), 3 ML IH QIDWA Meclizine Hcl (Meclizine Hcl), 12.5 MG PO Q8H Midodrine Hcl* (Proamatine*), 1 TAB PO Q8H Omeprazole (Omeprazole), 1 CAP PO DAILY, (Reported) Pantoprazole Sodium (Protonix), 40 MG PO DAILY Polyethylene Glycol 3350 (Miralax), 17 GM PO DAILY Potassium Chloride (Potassium Chloride), 1 TAB PO DAILY, (Reported) Durable Medical Equipment Compressor, For Nebulizer (Devilbiss Pulmomate), INH INH QIDWA, (DME) Past Medical History Past Medical History: Atrial Fibrillation, Hypertension, Syncope, COPD, Pneumonia, Sleep Apnea Past Surgical History: heart valve surgery Other Past Surgical History: AAA surgery Patient History: FH: pancreatic cancer Alcohol Use: None Drug Use: none Lives with: Spouse Lives In: Home Occupation: retired Review of Systems All Other Systems at this time: Reviewed and Negative Physical Exam Vital Signs: Temperature: 97.9, Source: Temporal, Heart Rate: 60, Respiratory Rate: 18, BP: 101/65, Pulse Oximetry: 97, Weight: 75.690 Oxygen Flow Rate: 0 Physical Exam I have reviewed the triage vitals. CONST: Well developed and well nourished. In no acute distress HENT: Significant swelling and ecchymoses over the left orbit with a small 0.5 cm laceration inferior laterally to the left orbit. Left eye with intact extraocular eye movements. Pupil is reactive. Right eye with chronic clouding of the iris and pupil. EYES: Pupils are equal, round and reactive to light. Normal conjunctiva NECK: Normal range of motion. Supple. CARDIO: Normal rate and regular rhythm. No murmurs, rubs, or gallops. S1, S2. PULM/CHEST: No respiratory distress. Lungs clear to auscultation. No wheeze ABD: Soft and nontender. Nondistended. Bowel sounds normal. No guarding. : Exam deferred MSK: No edema. No deformity. NEURO: Alert and oriented to person, place and time. Moving all extremities SKIN: Warm and dry. PSYCH: Normal mood and affect. Good eye contact. Procedures Laceration/Wound Repair Laceration : Location: Left face periorbital Length (cm): 1 Prep: irrigated by physician Irrigated w/ Saline (mls): 10 Undermining: none Margins: flaps aligned Foreign Body: not identified Repaired: skin Wound Repaired With: Dermabond Tolerated Procedure Well?: yes, no complications Progress Results/Orders Results/Orders Orders - TRISTA GABRIEL MD Ct Head (03/12/25 13:50) Ct Cervical Spine (03/12/25 13:50) Ct Facial Bones/Soft Tissue (03/12/25 13:50) Dermabond To Bedside (03/12/25 ) Completed Orders - TRISTA GABRIEL MD Ct Head (03/12/25 13:50) Ct Cervical Spine (03/12/25 13:50) Ct Facial Bones/Soft Tissue (03/12/25 13:50) Vital Signs 03/12/25 03/12/25 03/12/25 03/12/25 13:30 14:09 14:15 16:18 Temp 97.9 97.9 97.9 Pulse 66 60 72 Resp 18 14 18 19 B/P (MAP) 126/58 101/65 (77) 122/71 Pulse Ox 98 97 96 O2 Flow Rate 0 EKG/XRAY/CT/US/VASC/MRI CT : Impression EXAM: CT CT HEAD INDICATION: fall on thinners TECHNIQUE: CT of the head without intravenous contrast. Radiation Dose : 1. Head: CT Dose: CTDI volume is 53 mGy. Dose-length product is 950 mGy*cm The dose indicators for CT are the volume Computed Tomography (CT) Dose Index (CTDIvol) and the Dose Length Product (DLP), and are measured in units of mGy and mGy-cm, respectively. These indicators are not patient dose, but values generated from the CT scanner acquisition factors. The report includes radiation exposure data for exposures received during this examination. COMPARISON: MR MRI HEAD on DOS: 06/22/24, MR MRA HEAD on DOS: 06/22/24, CT CT HEAD on DOS: 06/21/24 FINDINGS: There is no evidence of acute intracranial hemorrhage, extra-axial collection, mass effect, midline shift, herniation or hydrocephalus. The ventricles, sulci and cisterns are age appropriate. The rob-white differentiation is intact. Patchy periventricular and subcortical white matter hypoattenuation is nonspecific but may be related to small vessel ischemic disease. Right temporal lobe encephalomalacia. The visualized paranasal sinuses and mastoid air cells are clear. Moderate to severe left periorbital and pre maxillary soft-tissue swelling. IMPRESSION: No acute intracranial abnormality. Procedure: CT [facility] Study Date and Requested Time: 03/12/2025 01:43 PM History: fall on thinners Comparison: CT CT HEAD on DOS: 03/12/25, MR MRI HEAD on DOS: 06/22/24, MR MRA HEAD on DOS: 06/22/24 Dose: CTDI: 54.49 mGy DLP: 1055.65 mGycm Technique: Multiplanar images obtained through the face without intravenous contrast. Findings: Large hematoma with a soft tissue edema over the left cheek and left zygomatic region ascending into the left lateral orbital region with no associated fractures. There is few ssociated foci of air. No evidence of acute traumatic fractures. Bilateral lens replacement with dislocation of the right lens of unknown ch ronicity. Abnormal configuration of the right globe. Moderate degenerative changes of the visualized cervical spine. Mild mucoperiosteal thickening of the right maxillary sinus. Otherwise, the paranasal sinuses mastoids are clear. Roots of the mandibular central and lateral incisors are noted. Otherwise, the patient is edentulous. Heavy atherosclerotic calcification of the carotid siphons. Surgical clips with Streak artifact are noted over The but Upper neck region which may be be associated with lymph node Dissection. Right palatine tonsillith is noted. The parotid and submandibular glands unremarkable. Impression: Large hematoma with soft tissue edema inferior Foci of air over the left cheek and left zygomatic region with no associated fractures. Bilateral lens replacement with dislocation of the right lens and abnormal configuration of the right globe of unknown chronicity. No significant right- sided periorbital edema. Technique: CT axial images of the cervical spine are obtained without contrast. Coronal and sagittal reformats were obtained. Radiation Dose Information: CTDI volume is 22.4 mGy. Dose-length product is 596 mGy*cm Comparison: CT CT HEAD on DOS: 03/12/25, MR MRI HEAD on DOS: 06/22/24, MR MRA HEAD on DOS: 06/22/24, CT CT HEAD on DOS: 06/21/24 FINDINGS: The cervical vertebral body heights are maintained. Straightening of normal cervical spine curvature. There is moderate to advanced disc space narrowing. No prevertebral edema. Facet articulations demonstrate moderate facet hypertrophic changes . The atlantooccipital, atlantoaxial articulations are intact. Pulmonary emphysematous changes. 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 Wrist postsurgical changes right neck. 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 Medical Decision Making Additional Comment 89-year-old male presenting with left facial contusion in as well as a periorbital hematoma and a small laceration over the left side of the face. The laceration was repaired-please see procedure note. CT of the brain, facial bones and cervical spine did not indicate any acute fractures however he does have a large hematoma over the left orbit. The patient did not lose consciousness at any point in his stable. Vitals are normal. This was not a fall due to any type of syncopal event and he experienced no chest pain or dizziness. This was purely mechanical as he slid off the bed and the laptop fell on his face. Thus I do not believe any lab work was indicated at this time. Patient's laceration was repaired. I advised the patient to apply ice over the affected area over the next several days and monitor for improvement. As he is on blood thinners I did warn him that some of the bruising may worsen over the next couple of days however after that it should start to improve. He was advised to follow up very closely with his primary care physician in the next 2-3 days. Return to the ED with any acutely worsening symptoms. Departure Disposition: 01 HOME / SELF CARE / HOMELESS Impression: Primary Impression: Traumatic orbital hematoma Additional Impressions: Facial contusion Facial laceration Additional Impression Text Apply ice to affected area. Monitor symptoms for improvement. Should her symptoms worsen report promptly back to the emergency department. Follow up with the primary care physician in the next 2-3 days. Condition: Improved Discharge Instructions: Chest Contusion, Adult, [id number], Facial Laceration, Hematoma Referrals: NO PRIMARY CARE PROVIDER (PCP) Signature Scribe Signature: 1 Attestation: 1 TRISTA GABRIEL MD Mar 12, 2025 14:59
[2025-03-12 16:18] VITALS: BP 122/71; PULSE 72; RESP 19; TEMP 97.9; O2SAT 96
== END 2025-03-12 16:15 | disposition home or self-care (01) ==
LOC: ER 13:25
DX: S01.81XA Laceration without foreign body of other part of head, initial encounter (principal); J44.9 Chronic obstructive pulmonary disease, unspecified; I48.91 Unspecified atrial fibrillation; I10 Essential (primary) hypertension; G47.30 Sleep apnea, unspecified; Z88.5 Allergy status to narcotic agent; Z79.82 Long term (current) use of aspirin; Z79.899 Other long term (current) drug therapy; W01.0XXA Fall on same level from slipping, tripping and stumbling without subsequent striking against object, initial encounter; Y93.89 Activity, other specified; Y92.89 Other specified places as the place of occurrence of the external cause; Y99.8 Other external cause status
CPT/HCPCS: 12011; 70450; 70486; 72125; 99284